=== PATIENT | female | born 1945 | race Caucasian/White ===

== ENCOUNTER 2016-03-05 01:01 | Emergency (ER) | payer OTHER ==
[~2016-03-05] VITALS: Ht 160 cm; Wt 104.3 kg
--- NOTE | 2016-03-05 01:16 | ED CARDIAC/CP/PALPITATIONS ---
History of Present Illness General Chief Complaint: Chest Pain Stated Complaint: "PER PT CP FROM COUGHING" Source: patient Exam Limitations: no limitations Vital Signs & Intake/Output Vital Signs & Intake/Output Vital Signs Date Time Temp Pulse Resp B/P Pulse O2 O2 Flow FiO2 Ox Delivery Rate 03/05 0432 98.0 72 20 179/76 96 Room Air 03/05 0201 96 03/05 0114 97.7 76 20 169/70 95 Room Air Allergies Coded Allergies: pregabalin (From LYRICA) (Severe, THROAT SWELLING, DIZZINESS 03/05/16) Reconcile Medications Albuterol Sulfate (Ventolin Hfa) 90 MCG HFA.AER.AD 2 PUF INH Q4-6 PRN PRN cough/wheeze Azithromycin (Zithromax) 250 MG TABLET 1 DP PO AD bronchitis 2 the first day followed by 1 for days 2-5 Benzonatate (Tessalon Perle) 100 MG CAPSULE 1-2 CAP PO TID PRN cough Prednisone 50 MG TABLET 1 TAB PO DAILY bronchitis Promethazine HCl/Codeine (Promethazine-Codeine Syrup) 6.25 MG-10 MG/5 ML SYRUP 5-10 ML PO Q4-6 PRN cough one hundred twenty.... [id number] Triage Note: PT PRESENTED TO ED WITH REPRODUCABLE 10/10 "SHARP" PAIN UNDER RIGHT BREAST UPON COUGHING OR SNEEZING. PT HAD BEEN COUGHING AND LOOSE STOOLS FOR APPROX 8 DAYS. NO OBVIOUS TRAUMATIC INJURY NOTED. DENIED SOB AND N/V. EKG DONE. NSR ON MONITOR Triage Nurses Notes Reviewed? yes Onset: Gradual Duration: day(s): Timing: recent history Location: right lower rib cage. Radiation: no radiation Activities at Onset: coughing Modifying Factors: Worsens With: coughing, palpation. Associated Symptoms: coughing, wheeze HPI: 70 yo woman in prior good health, presents with cough, wheezing, and right lower rib cage pain. She notes, "I am coughing so much that my rib cage hurts... My had the same thing but he got better." She notes clear copious phlegm, wheezing, but no fever, chest pressure, radiation. Past History Travel History Traveled to [place] past 21 day No Medical History Any Pertinent Medical History? see below for history Pneumonia Vaccine: 10/30/09 Surgical History Surgical History: none Psychosocial History Who do you live with Spouse What is your primary language [place] Family History Hx Contributory? No Review of Systems Review of Systems Constitutional: Reports: no symptoms. EENTM: Reports: no symptoms. Respiratory: Reports: no symptoms. Cardiovascular: Reports: no symptoms. GI: Reports: no symptoms. Genitourinary: Reports: no symptoms. Musculoskeletal: Reports: no symptoms. Skin: Reports: no symptoms. Neurological/Psychological: Reports: no symptoms. Hematologic/Endocrine: Reports: no symptoms. Immunologic/Allergic: Reports: no symptoms. All Other Systems: Reviewed and Negative Physical Exam Physical Exam General Appearance: well developed/nourished, mild distress Head: atraumatic, normal appearance Eyes: Bilateral: normal appearance. Ears, Nose, Throat: normal pharynx, normal ENT inspection, hearing grossly normal Respiratory: normal breath sounds, no respiratory distress, right lower focal rib cage tenderness to palpation. Cardiovascular: regular rate/rhythm Gastrointestinal: normal bowel sounds, soft, non-tender Back: normal inspection, normal range of motion Extremities: normal inspection, normal capillary refill, normal range of motion, no edema Neurologic/Psych: no motor/sensory deficits, awake, alert, oriented x 3 Skin: intact, normal color, warm/dry Core Measures ACS in differential dx? No Severe Sepsis Present: No Septic Shock Present: No Progress Differential Diagnosis: mi, pe, bronchitis, pneumonia vs other. Plan of Care: Orders Procedure Date/time Status Nothing by Mouth 03/05 B Active Add-on Test (ER Only) 03/05 0250 Active TROPONIN LEVEL 03/05 221 Complete COMPREHENSIVE METABOLIC PANEL 03/05 221 Complete CBC WITHOUT DIFFERENTIAL 03/05 221 Complete Saline Lock 03/05 108 Active Misc Message 03/05 108 Active ED Holding Orders 03/05 108 Active Vital Signs 03/05 108 Active D-DIMER 03/05 108 Complete Code Status 03/05 108 Active EKG 03/05 104 Active Laboratory Tests 03/05/16 0222: Anion Gap 14, Estimated GFR > 60, BUN/Creatinine Ratio 25.6 H, Glucose 167 H, Calcium 8.6, Total Bilirubin 0.4, AST 32, ALT 41, Alkaline Phosphatase 79, Troponin I < 0.01, Total Protein 7.0, Albumin 3.7, Globulin 3.3, Albumin/ Globulin Ratio 1.1, D-Dimer 580 H, CBC w Diff NO MAN DIFF REQ, RBC 4.32, MCV 85.4, MCH 28.6, RDW 13.9, MPV 8.8, Gran % 57.7, Lymphocytes % 29.0, Monocytes % 10.0 H, Eosinophils % 3.0, Basophils % 0.3, Absolute Granulocytes 3.4, Absolute Lymphocytes 1.7, Absolute Monocytes 0.6, Absolute Eosinophils 0.2, Absolute Basophils 0, PUBS MCHC 33.5 Diagnostic Imaging: Viewed by Me: Radiology Read, CT Scan. Discussed w/RAD: Radiology Read, CT Scan. Radiology Impression: ct angio... no PE CXR Impression: no acute abnormality, no infiltrates, normal size heart, normal mediastinum Initial ED EKG: normal axis, normal intervals, normal p-waves, normal QRS complex, normal sinus rhythm Comments: PATIENT: JYOTI WONG PRESENT AGE: 70 PATIENT ACCOUNT NO: [id number] : 44 LOCATION: [facility] ORDERING PHYSICIAN: NANCY KANG MD SERVICE DATE: 03/05/16 EXAM TYPE: CAT - CTA CHEST-PULMONARY EMBOLISM EXAMINATION: CT ANGIOGRAM OF THE CHEST WITH AND WITHOUT CONTRAST (CT PULMONARY ANGIOGRAM FOR PE) CLINICAL INFORMATION: Chest pain. Positive d-dimer. COMPARISON: 10/24/2010 TECHNIQUE: Prior to contrast administration, noncontrast localization images were obtained. Subsequently, multidetector volumetric imaging was performed from the thoracic inlet to below the diaphragms following the administration of 82 mL Optiray 320 intravenous contrast. No contrast reaction reported Sagittal, coronal, and MIP oblique sagittal reformatted images were obtained on the CT workstation, uploaded to PACS, and reviewed. Total exam dose-length product 558 mGy-cm FINDINGS: QUALITY OF STUDY/CONTRAST BOLUS: Satisfactory. PULMONARY ARTERIES: No central or segmental pulmonary emboli. THORACIC AORTA: No aneurysm or dissection. LUNG: A 0.5 cm nodule in the left major fissure on image 35/59 of series 4 is unchanged from prior and likely an intrapulmonary lymph node. A a few foci of mucus plugging are present in the lower lobes bilaterally. No bronchiectasis. No consolidation or emphysema. PLEURA: No pleural effusion or pneumothorax. MEDIASTINUM: Normal heart size. No pericardial effusion. No hilar or mediastinal lymphadenopathy. No evidence of septal bowing or right heart strain. CHEST WALL/AXILLA: No axillary or internal mammary lymphadenopathy. 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 No acute osseous abnormalities. UPPER ABDOMEN: Unremarkable. No reflux of contrast into the hepatic veins to suggest elevated right heart pressures. IMPRESSION: No evidence of pulmonary embolism or of acute disease in the chest. VTE: negative DICTATED BY: KERRI QUIÑONEZ MD DATE/TIME DICTATED:03/05/16504 RRT:LINDA DATE/TIME TRANSCRIBED:03/05/16504 CONFIDENTIAL, DO NOT COPY WITHOUT APPROPRIATE AUTHORIZATION. <Electronically signed in Other Vendor System> SIGNED BY: KHANG ARIAS, PATIENT: JYOTI WONG PRESENT AGE: 70 PATIENT ACCOUNT NO: [id number] : 44 LOCATION: [facility] ORDERING PHYSICIAN: NANCY KANG MD SERVICE DATE: 03/05/16 EXAM TYPE: RAD - XRY-PORTABLE CHEST XRAY EXAMINATION: XR PORTABLE CHEST CLINICAL INFORMATION: Chest pain COMPARISON: 10/24/2010 TECHNIQUE: AP portable upright view of the chest FINDINGS: Lungs are clear. No consolidation, pneumothorax, or pleural effusion. Cardiac and mediastinal contours are normal. Pulmonary vasculature is unremarkable. Degenerative disc disease is present in the thoracic spine. 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 IMPRESSION: No acute cardiopulmonary findings DICTATED BY: KERRI QUIÑONEZ MD DATE/TIME DICTATED:03/05/16148 RRT:LINDA DATE/TIME TRANSCRIBED:03/05/16148 CONFIDENTIAL, DO NOT COPY WITHOUT APPROPRIATE AUTHORIZATION. <Electronically signed in Other Vendor System> SIGNED BY: KERRI QUIÑONEZ MD 03/05/16 0153 Departure Departure Disposition: HOME OR SELF CARE Condition: Stable Clinical Impression Primary Impression: Bronchitis Secondary Impressions: Chest wall pain, Cough Referrals: CEE DA SILVA MD (PCP/Family) Departure Forms: Customer Survey General Discharge Information Prescriptions: Current Visit Scripts Azithromycin (Zithromax) 1 DP PO AD #6 TAB 2 the first day followed by 1 for days 2-5 Prednisone 1 TAB PO DAILY #5 TAB Benzonatate (Tessalon Perle) 1-2 CAP PO TID PRN cough #30 CAP Promethazine HCl/Codeine (Promethazine-Codeine Syrup) 5-10 ML PO Q4-6 PRN cough #120 ML one hundred twenty.... [id number] Albuterol Sulfate (Ventolin Hfa) 2 PUF INH Q4-6 PRN PRN cough/wheeze #1 INHAL Comments 03/05/16, 6am... after several hours in the ED with supportive medications, pt is feeling better. She would like to go home. CT angio negative for PE or acute disease. Will treat patient with abx/steroids/albuterol and supportive medications. Close follow up advised. Critical Care Note Critical Care Note Critical Care Time: non-applicable
--- NOTE | 2016-03-05 01:53 | RADIOLOGY REPORT ---
EXAMINATION: XR PORTABLE CHEST CLINICAL INFORMATION: Chest pain COMPARISON: 10/24/2010 TECHNIQUE: AP portable upright view of the chest FINDINGS: Lungs are clear. No consolidation, pneumothorax, or pleural effusion. Cardiac and mediastinal contours are normal. Pulmonary vasculature is unremarkable. Degenerative disc disease is present in the thoracic spine. 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 IMPRESSION: No acute cardiopulmonary findings
[2016-03-05 03:22] LABS: ABSOLUTE BASOPHIL COUNT 0 /CUMM (0.0-0.2); ABSOLUTE EOSINOPHIL COUNT 0.2 /CUMM (0.0-0.7); ABSOLUTE GRANULOCYTE CT 3.4 /CUMM (1.4-6.5); ABSOLUTE LYMPH COUNT 1.7 /CUMM (1.2-3.4); ABSOLUTE MONOCYTE COUNT 0.6 /CUMM (0.10-0.60); BASOPHIL % 0.3 % (0.0-2.0); GRANULOCYTE % 57.7 % (42.2-75.2); HEMATOCRIT 36.9 % (37-47); MEAN CORPUSCULAR HGB 28.6 PG (27.0-31.0); MEAN CORPUSCULAR HGB CONC 33.5 G/DL (33.0-37.0); MEAN CORPUSCULAR VOLUME 85.4 FL (81.0-99.0); MEAN PLATELET VOLUME 8.8 FL (7.4-10.4); PLATELET COUNT 196 /CUMM (130-400); RBC DISTRIBUTION WIDTH 13.9 % (11.5-14.5); RED BLOOD CELL CT 4.32 /CUMM (4.20-5.40); WHITE BLOOD CELL COUNT 5.8 /CUMM (4.8-10.8)
[2016-03-05 04:32] VITALS: BP 179/76
--- NOTE | 2016-03-05 05:20 | CT SCAN REPORT ---
EXAMINATION: CT ANGIOGRAM OF THE CHEST WITH AND WITHOUT CONTRAST (CT PULMONARY ANGIOGRAM FOR PE) CLINICAL INFORMATION: Chest pain. Positive d-dimer. COMPARISON: 10/24/2010 TECHNIQUE: Prior to contrast administration, noncontrast localization images were obtained. Subsequently, multidetector volumetric imaging was performed from the thoracic inlet to below the diaphragms following the administration of 82 mL Optiray 320 intravenous contrast. No contrast reaction reported Sagittal, coronal, and MIP oblique sagittal reformatted images were obtained on the CT workstation, uploaded to PACS, and reviewed. Total exam dose-length product 558 mGy-cm FINDINGS: QUALITY OF STUDY/CONTRAST BOLUS: Satisfactory. PULMONARY ARTERIES: No central or segmental pulmonary emboli. THORACIC AORTA: No aneurysm or dissection. LUNG: A 0.5 cm nodule in the left major fissure on image 35/59 of series 4 is unchanged from prior and likely an intrapulmonary lymph node. A a few foci of mucus plugging are present in the lower lobes bilaterally. No bronchiectasis. No consolidation or emphysema. PLEURA: No pleural effusion or pneumothorax. MEDIASTINUM: Normal heart size. No pericardial effusion. No hilar or mediastinal lymphadenopathy. No evidence of septal bowing or right heart strain. CHEST WALL/AXILLA: No axillary or internal mammary lymphadenopathy. 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 No acute osseous abnormalities. UPPER ABDOMEN: Unremarkable. No reflux of contrast into the hepatic veins to suggest elevated right heart pressures. IMPRESSION: No evidence of pulmonary embolism or of acute disease in the chest. VTE: negative
[2016-03-05] MEDS ORDERED: ZITHROMAX250 M2 PO (05:34)
[2016-03-05] MEDS ORDERED: PROMETHAZINE-C118 ML PO (05:34)
[2016-03-05] MEDS ORDERED: PREDNISONE50 M1 PO (05:34)
[2016-03-05] MEDS ORDERED: TESSALON PERLE100 M1 PO (05:34)
[2016-03-05] MEDS ORDERED: VENTOLIN HFA18 GM INH (05:35)
== END 2016-03-05 05:54 ==
LOC: ERH 01:01
PROVIDERS: Pediatrics
DX: J40 Bronchitis, not specified as acute or chronic (principal); R07.89 Other chest pain
CPT/HCPCS: 1263; 1395; 93005; 93010; 96372; 96374; 96375; J1885; J2550; J3490